=== PATIENT | female | born 1995 | race Two or more races ===

== ENCOUNTER 2020-01-12 13:55 | Emergency (ER) | payer MEDICAID ==
[~2020-01-12] VITALS: Ht 167.6 cm; Wt 65.8 kg
[2020-01-12] MEDS ORDERED: Albuterol/Ipratropium 3ml neb HHN ONE (14:00)
--- NOTE | 2020-01-12 14:09 | Emergency Room Report ---
History of Present Illness General Chief Complaint: Sore Throat Source: Patient Present Illness HPI 24-year-old female presents for increased difficulty with breathing and sore throat. Patient reports having recent onset of symptoms approximate 3 days ago. Denies any food allergies in the past. Had not been having any prior history of asthma. Reports having increased painful swallowing as well as difficulty with moving air. States that she had recent coronavirus testing but does not know the results while she was incarcerated. Denies any fever. Denies any history of allergies any medication use. Allergies: Coded Allergies: No Known Allergies (Unverified , 01/12/20) COVID-19 Screening Contact w/high risk pt: No Experienced COVID-19 symptoms?: No COVID-19 Testing performed ACID CONDENSER: No Patient History Past Medical History: see triage record Last Menstrual Period: na Reviewed Nursing Documentation: PMH: Agreed; PSxH: Agreed Nursing Documentation-PMH Hx Cardiac Problems: No Hx Hypertension: No Hx Pacemaker: No Hx Asthma: No Hx COPD: No Hx Diabetes: No Hx Cancer: No Hx Gastrointestinal Problems: No Hx Dialysis: No History Of Psychiatric Problem: No Hx Neurological Problems: No Hx Cerebrovascular Accident: No Hx Seizures: No Review of Systems All Other Systems: negative except mentioned in HPI Physical Exam Vital Signs Date Time Temp Pulse Resp B/P (MAP) Pulse Ox O2 Delivery O2 Flow Rate FiO2 01/12/20 13:44 97.3 98 16 142/73 (96) 98 Room Air Sp02 EP Interpretation: reviewed, normal General Appearance: normal inspection, well appearing, no apparent distress, alert, GCS 15, obese Head: atraumatic ENT: normal ENT inspection, hearing grossly normal, normal voice Neck: normal inspection, full range of motion, supple, no bony tend Respiratory: normal inspection, lungs clear, normal breath sounds, no respiratory distress, no retraction, no wheezing Cardiovascular #1: regular rate, rhythm, no edema Gastrointestinal: normal inspection, normal bowel sounds, non tender, soft, no guarding, no hernia Genitourinary: no CVA tenderness Musculoskeletal: normal inspection, back normal, normal range of motion Neurologic: alert, motor strength/tone normal, veterinarian assistant III-XII nml as tested, oriented x3, responsive, speech normal, normal inspection Psychiatric: normal inspection, judgement/insight normal, mood/affect normal Skin: palpation normal Medical Decision Making Diagnostic Impression: Primary Impression: Bronchitis ER Course Patient presented for difficulty breathing. Differential diagnosis include was not limited to pneumonia, coronavirus infection, bronchitis among others. Because of complexity of patient's case laboratory tests and imaging studies were ordered. Patient was noted to have recent incarceration . She was noted to have some wheezing and breathing treatments ordered. Apparently she may have been exposed to coronavirus. Virus testing was ordered. Patient was given steroids as well as breathing treatment.Coronavirus testing was negative. test was negative.Patient was advised to have repeat coronavirus testing if symptoms persist.Advised to continue self isolating.Patient symptoms are likely more related to poor air quality in the area at this time. She was advised to follow-up with primary care physician for recheck. She was given prescription for inhaler. She was advised to return if she had any increased difficulty breathing or other concerns. This medical record is generated with [employer] reactor service operator software. There may be some reactor service operator discrepancies related to use of this software. Labs Test 01/12/20 14:00 Urine Color Yellow Urine Appearance Slightly cloudy Urine pH 5 (4.5-8.0) Urine Specific [place] 1.020 (1.005-1.035) Urine Protein 1+ (NEGATIVE) Urine Glucose (UA) Negative (NEGATIVE) Urine Ketones 1+ (NEGATIVE) Urine Blood Negative (NEGATIVE) Urine Nitrite Negative (NEGATIVE) Urine Bilirubin Negative (NEGATIVE) Urine Urobilinogen Normal MG/DL (0.0-1.0) Urine Leukocyte Esterase 2+ (NEGATIVE) Urine RBC 2-4 /HPF (0 - 2) Urine WBC 2-4 /HPF (0 - 2) Urine Squamous Epithelial Cells Moderate /LPF (NONE/OCC) Urine Bacteria Moderate /HPF (NONE) Urine HCG, Qualitative Negative (NEGATIVE) Last Vital Signs Date Time Temp Pulse Resp B/P (MAP) Pulse Ox O2 Delivery O2 Flow Rate FiO2 01/12/20 13:44 97.3 98 16 142/73 (96) 98 Room Air Status: improved Disposition: HOME, SELF-CARE Condition: Stable Scripts Albuterol Sulfate* (Albuterol Sulfate Hfa*) 8.5 Gm Hfa.aer.ad 2 PUFF INH Q4H, #1 INH Prov: Martin Sherman MD 01/12/20 Martin Sherman MD Jan 12, 2020 14:09
[2020-01-12 14:11] VITALS: BP 142/73
[2020-01-12 14:17] LABS: APPEARANCE,URINE SLIGHTLY CLOUDY; BILIRUBIN, URINE NEGATIVE (NEGATIVE); GLUCOSE, URINE (UA) NEGATIVE (NEGATIVE); KETONES,URINE 1+ (NEGATIVE); LEUKOCYTE ESTERASE ,URINE 2+ (NEGATIVE); NITRITE,URINE NEGATIVE (NEGATIVE); PH,URINE 5 (4.5-8.0); PROTEIN,URINE 1+ (NEGATIVE); UROBILINOGEN,URINE NORMAL MG/DL (0.0-1.0)
[2020-01-12 14:18] LABS: COLOR,URINE YELLOW
[2020-01-12] MEDS ORDERED: Albuterol/Ipratropium 3ml neb ONE (15:17)
--- NOTE | 2020-01-12 15:29 | Diagnostic Imaging Report ---
Indication: Shortness of breath Technique: XRAY Chest 1v Comparison: None Findings: Heart size and mediastinal contours are within normal limits for AP technique. There is no focal airspace consolidation, pneumothorax or pleural effusion. Osseous structures demonstrate no acute abnormality. Impression: No radiographic evidence of acute cardiopulmonary disease.
[2020-01-12] MEDS ORDERED: ALBUTEROL SULF8.5 G1 INH (16:44)
[2020-01-12 16:45] VITALS: BP 142/73
[2020-01-16] MEDS ORDERED: CEPHALEXIN500 MG ORAL (07:44)
== END 2020-01-12 16:45 | disposition home or self-care (01) ==
LOC: EDBD 13:55 → EMR 14:00
DX: J20.9 Acute bronchitis, unspecified (principal); E66.9 Obesity, unspecified; Z68.23 Body mass index [BMI] 23.0-23.9, adult
CPT/HCPCS: 71045; 81003; 81025; 87086; 87181; 94640; 96372; J1100; U0002; Z7502; 99284; J7620